=== PATIENT | male | born 1940 | race Caucasian/White ===

== ENCOUNTER 2017-05-15 20:42 | Observation (INO) | payer MEDICARE ==
[~2017-05-15] VITALS: Ht 170.2 cm; Wt 83.9 kg
--- NOTE | ~2017-05-15 | EKG ---
[address] [address] ELECTROCARDIOGRAM REPORT Name: ANGEL MCKEON Room #: 310-P [facility].#: [id number] Admission: 05/16/17 Attend Phys: Jace Monroy MD Discharge: Date of : 38 Report #: [id number] THIS REPORT FOR: //name// [facility] ED Test Date: 2017-05-16 Test Time: 01:50:19 Pat Name: ANGEL MCKEON Department: Room: 310 Gender: M Radiation Oncology Manager: DARIN : 1940 Requested By: Nicole Good Order Number: [id number] MD: Ernesto Max Measurements Intervals [place] Rate: 57 P: 63 CT: 156 QRS: 42 QRSD: 100 T: 41 QT: 422 QTc: 411 Interpretive Statements Sinus bradycardia Otherwise no significant abnormality No previous ECG available for comparison Electronically Signed On 05-16-2017 10:53:54 CDT by Ernesto Max [email or web address] <ELECTRONICALLY SIGNED> By: Ernesto Max MD, [facility] 05/16/17 1053 0150 0150 Ernesto Max MD, FACC /EPI
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
[2017-05-15 21:23] VITALS: BP 141/85
[2017-05-15] MEDS ORDERED: SIMVASTATIN10 MG PO (21:29)
[2017-05-15 23:15] LABS: ABSOLUTE NEUTROPHILS 10.3 thou/uL (1.4-8.2); BASOPHILS 0.3 % (0.0-2.0); EOSINOPHILS 0.1 % (0.0-3.0); HEMATOCRIT 44.3 % (42.0-52.0); HEMOGLOBIN 14.7 gm/dL (14.0-18.0); MCH 29.6 pg (26.0-34.0); MCHC 33.1 g/dL (28.0-37.0); MCV 89.4 fL (80.0-100.0); MONOCYTES 7.4 % (1.0-8.0); PLATELET COUNT 159 thou/uL (150-400); POLYS 85.2 % (36.0-66.0); RBC 4.95 mil/uL (4.50-6.00); RDW 13.7 % (10.5-14.5); WBC 12.1 thou/uL (4.0-11.0)
[2017-05-15 23:24] LABS: APTT 26.4 Seconds (24.5-32.8); PROTIME 10.4 Seconds (9.3-11.4)
[2017-05-15 23:25] LABS: MANUAL DIFF NO
[2017-05-15 23:30] LABS: ALBUMIN 3.8 g/dL (3.4-5.0); CALCIUM 9.4 mg/dL (8.5-10.1); CREATININE 0.9 mg/dL (0.7-1.3); TOTAL BILIRUBIN 0.7 mg/dL (<0.1-1.0); TOTAL PROTEIN 7.1 g/dL (6.4-8.2)
[2017-05-15 23:42] LABS: POTASSIUM 4.4 mmol/L (3.5-5.1)
[2017-05-16] MEDS ORDERED: HYDROCODONE-AP1 EAC6 PO (00:39)
[2017-05-16 03:14] VITALS: BP 126/77
[2017-05-16 08:00] VITALS: BP 136/74
[2017-05-16 17:22] VITALS: BP 136/74
[2017-05-18 13:10] LABS: THYROGLOBULIN 69.7 ng/mL (1.4-29.2)
== END 2017-05-16 17:51 | disposition home or self-care (01) ==
LOC: ER 20:42 → EROBS 05-16 02:04 → 3N 05-16 02:04 → EROBS 05-16 02:04 → ER 05-16 02:04 → 3N 05-16 03:15
PROVIDERS: Internal Medicine Endocrinology, Diabetes & Metabolism; Physician Assistant
DX: S42.151A Displaced fracture of neck of scapula, right shoulder, initial encounter for closed fracture (principal); S22.31XA Fracture of one rib, right side, initial encounter for closed fracture; V19.3XXA Pedal cyclist (driver) (passenger) injured in unspecified nontraffic accident, initial encounter; E07.89 Other specified disorders of thyroid; E78.00 Pure hypercholesterolemia, unspecified; G47.30 Sleep apnea, unspecified; Z72.89 Other problems related to lifestyle; Y93.89 Activity, other specified; Y92.488 Other paved roadways as the place of occurrence of the external cause; Y99.8 Other external cause status

== ENCOUNTER 2019-04-25 11:30 | Emergency (ER) | payer MEDICARE ==
[~2019-04-25] VITALS: Ht 170.2 cm; Wt 83.9 kg
[~2019-04-25 11:30] MED LIST: HYDROCODONE-AP1 EAC6 PO; SIMVASTATIN10 MG PO
[2019-04-25 12:03] LABS: ABSOLUTE NEUTROPHILS 4.2 thou/uL (1.4-8.2); BASOPHILS 0.4 % (0.0-2.0); EOSINOPHILS 0.9 % (0.0-3.0); HEMATOCRIT 43.3 % (42.0-52.0); HEMOGLOBIN 14.6 gm/dL (14.0-18.0); LYMPHOCYTES 20.2 % (24.0-44.0); MCH 30.2 pg (26.0-34.0); MCHC 33.6 g/dL (28.0-37.0); MCV 89.8 fL (80.0-100.0); MONOCYTES 7.1 % (1.0-8.0); PLATELET COUNT 163 thou/uL (150-400); POLYS 71.4 % (36.0-66.0); RBC 4.82 mil/uL (4.50-6.00); RDW 13.8 % (10.5-14.5); WBC 5.9 thou/uL (4.0-11.0)
[2019-04-25 12:15] LABS: CALCIUM 9.4 mg/dL (8.5-10.1); POTASSIUM 4.3 mmol/L (3.5-5.1)
[2019-04-25 12:27] LABS: ALBUMIN 3.9 g/dL (3.4-5.0); TOTAL BILIRUBIN 0.7 mg/dL (<0.1-1.0); TOTAL PROTEIN 7.5 g/dL (6.4-8.2)
[2019-04-25 12:46] LABS: URINE BILIRUBIN NEGATIVE (Negative); URINE BLOOD 3+ (Negative); URINE CLARITY CLOUDY; URINE COLOR YELLOW; URINE GLUCOSE-RANDOM* TRACE (Negative); URINE KETONES NEGATIVE (Negative); URINE LEUKOCYTES NEGATIVE (Negative); URINE NITRITE NEGATIVE (Negative); URINE PROTEIN (DIPSTICK) 1+ (Negative); URINE SPECIFIC GRAVITY >= 1.030 (1.005-1.035)
[2019-04-25 12:56] LABS: SQUAMOUS 0-3 Few /LPF (0-3); URINE RBC >20 Many /HPF (0-2)
[2019-04-25 12:57] LABS: BACTERIA 1-9 Few /HPF (None Seen); CASTS None Seen /LPF (None Seen); CRYSTALS None Seen /LPF (None Seen); URINE WBC 0-5 Rare /HPF (0-5)
[2019-04-25 13:45] VITALS: BP 132/67
[2019-04-25] MEDS ORDERED: NORCO 5-325 TA1 EAC1 PO (13:46)
[2019-04-25] MEDS ORDERED: ONDANSETRON HCL4 M2 PO (13:46)
[2019-04-25] MEDS ORDERED: FLOMAX0.4 MG PO (13:46)
== END 2019-04-25 13:45 | disposition home or self-care (01) ==
LOC: ER 11:30
PROVIDERS: Emergency Medicine
DX: N20.0 Calculus of kidney (principal); G47.30 Sleep apnea, unspecified